=== PATIENT | male | born 2000 | race Asian ===

== ENCOUNTER → 2023-06-26 07:17 | Outpatient (BNVA) | payer OTHER, SELFPAY | PROVIDERS: PCP Family Medicine Adult Medicine; Visit Provider Family Medicine Adult Medicine | DX: Z82.49 Family history of ischemic heart disease and other diseases of the circulatory system (principal); Z83.49 Family history of other endocrine, nutritional and metabolic diseases; Z00.00 Encounter for general adult medical examination without abnormal findings | CPT/HCPCS: 80053; 80061; 84443; 85025 ==